=== PATIENT | female | born 1935 ===

== ENCOUNTER 2017-03-15 16:30 | Observation (INO) | payer SELFPAY ==
[2017-03-15 16:30] VITALS: BMI 21.2
--- NOTE | 2017-03-15 17:46 | ED PDOC ---
Arrival/HPI - General Chief Complaint: Back Pain Time Seen by Provider: 03/15/17 17:42 Historian: Patient - History of Present Illness Narrative History of Present Illness (Text): 03/15/17 17:43 Saroj Noyola is an 82 year old female who presents to the emergency department brought in by EMS complaining of dizziness, and sensation of burning posterior neck and Upper back x 5 days. Patient stated symptoms are intermittent. Patient has fallen on the floor multiple times last 2 weeks. Patient denies cp, sob, diplopia, VAUGHAN, dysarthria, or abnormal gait. Time/Duration: < week Context: Home Past Medical History - Provider Review Nursing Documentation Reviewed: Yes - Infectious Disease Hx of Infectious Diseases: None - Cardiac Hx Cardiac Disorders: Yes - Pulmonary Hx Respiratory Disorders: No - Neurological Hx Neurological Disorder: No - HEENT Hx HEENT Disorder: No - Renal Hx Renal Disorder: No - Endocrine/Metabolic Hx Endocrine Disorders: No - Hematological/Oncological Hx Blood Disorders: No - Integumentary Hx Dermatological Disorder: Yes Other/Comment: LESION TO SKIN ON CHEST WALL - Musculoskeletal/Rheumatological Hx Musculoskeletal Disorders: No - Gastrointestinal Hx Gastrointestinal Disorders: No - Genitourinary/Gynecological Hx Genitourinary Disorders: No - Psychiatric Hx Psychophysiologic Disorder: No Hx Substance Use: No - Surgical History Other/Comment: Pt reported had abdominal surgery but does not remember what it was for. - Anesthesia Hx Anesthesia: Yes Hx Anesthesia Reactions: No Hx Malignant Hyperthermia: No Family/Social History - Physician Review Nursing Documentation Reviewed: Yes Family/Social History: Other (noncontributory) Smoking Status: Never Smoked Hx Alcohol Use: No Hx Substance Use: No Allergies/Home Meds Allergies/Adverse Reactions: Allergies No Known Allergies Allergy (Verified 03/15/17 17:13) Home Medications: Home Meds Medication Instructions Recorded Confirmed Simvastatin 40 mg PO DAILY 03/11/17 03/11/17 Review of Systems - Review of Systems Constitutional: Normal. absent: Fatigue, Weight Change, Fevers Eyes: Normal ENT: Normal Respiratory: Normal. absent: SOB, Cough Cardiovascular: Normal. absent: Chest Pain, Palpitations Gastrointestinal: Normal Genitourinary Female: Normal Musculoskeletal: Normal Skin: Normal Neurological: Dizziness. absent: Headache, Speech Changes Endocrine: Normal Hemo/Lymphatic: Normal Psychiatric: Normal Physical Exam Vital Signs Temp Pulse Resp BP Pulse Ox 03/15/17 17:13 97.8 F 77 17 115/64 98 Temperature: Afebrile Blood Pressure: Normal Pulse: Regular Respiratory Rate: Normal Appearance: Positive for: Well-Appearing, Non-Toxic, Comfortable Pain Distress: None Mental Status: Positive for: Alert and Oriented X 3 - Systems Exam Head: Present: Atraumatic, Normocephalic Pupils: Present: PERRL Extroacular Muscles: Present: EOMI Conjunctiva: Present: Normal Mouth: Present: Moist Mucous Membranes Neck: Present: Normal Range of Motion Respiratory/Chest: Present: Clear to Auscultation, Good Air Exchange. No: Respiratory Distress, Accessory Muscle Use Cardiovascular: Present: Regular Rate and Rhythm, Normal S1, S2. No: Murmurs Abdomen: Present: Normal Bowel Sounds. No: Tenderness, Distention, Peritoneal Signs Back: Present: Normal Inspection Upper Extremity: Present: Normal Inspection, Normal ROM, Capillary Refill < 2s. No: Cyanosis, Edema Lower Extremity: Present: Normal Inspection. No: Edema Neurological: Present: GCS=15, CN II-XII Intact, Speech Normal Skin: Present: Warm, Dry, Normal Color. No: Rashes Psychiatric: Present: Alert, Oriented x 3, Normal Insight, Normal Concentration Medical Decision Making ED Course and Treatment: 03/16/17 00:[address] Baker regarding patient c/o dizziness. He reviewed labs, imaging. He agreed with plan for observation. Re-evaluation Time: 23:46 Reassessment Condition: Re-examined, Improving,but remains with symptoms - Lab Interpretations Lab Results: 03/15/17 19:21 03/15/17 19:21 Lab Results 03/15/17 19:21: Sodium 143, Potassium 4.1, Chloride 105, Carbon Dioxide 26, Anion Gap 16, BUN 14, Creatinine 0.7, Est GFR ( Amer) > 60, Est GFR (Non- Af Amer) > 60, Random Glucose 106, Calcium 9.7, Magnesium 2.3 H, Total Bilirubin 0.9, AST 41 H D, ALT 37, Alkaline Phosphatase 85, Lactate Dehydrogenase 614, Total Creatine Kinase 188, Troponin I 0.03 D, Total Protein 7.8, Albumin 4.7, Globulin 3.1, Albumin/Globulin Ratio 1.5 03/15/17 19:21: WBC 7.8, RBC 4.18, Hgb 13.9, Hct 42.3, MCV 101.2, MCH 33.3, MCHC 32.9, RDW 13.1, Plt Count 202, MPV 10.3, Gran % 73.1 H, Lymph % (Auto) 19.7 L, Florence % (Auto) 6.1 H, Eos % (Auto) 0.5 L, Baso % (Auto) 0.6, Gran # 5.67 , Lymph # 1.5, Florence # 0.5, Eos # 0.0, Baso # 0.05 I have reviewed the lab results: Yes Interpretation: No clinic. lab abnormalty - RAD Interpretation Narrative RAD Interpretations (Text): 03/15/17 19:50 PROCEDURE: CT HEAD WITHOUT CONTRAST. HISTORY: Dizziness COMPARISON: 03/11/2017. TECHNIQUE: Axial computed tomography images were obtained through the head/brain without intravenous contrast. Radiation dose: Total exam DLP = 868.73 mGy-cm. This CT exam was performed using one or more of the following dose reduction techniques: Automated exposure control, adjustment of the mA and/or kV according to patient size, and/or use of iterative reconstruction technique. FINDINGS: HEMORRHAGE: No intracranial hemorrhage. BRAIN: There are mild chronic microangiopathic changes. There is no mass, mass effect or abnormal extra-axial fluid collection. There is no territorial infarction. There are coarse atherosclerotic calcifications in the cavernous carotid arteries. VENTRICLES: There is mild age-related global parenchymal volume loss and proportionate enlargement of the ventricles and cortical sulci. CALVARIUM: There is mild hyperostosis frontalis interna. PARANASAL SINUSES: Predominantly clear. MASTOID AIR CELLS: Predominantly clear. OTHER FINDINGS: None. IMPRESSION: No acute intracranial abnormality. Mild chronic microangiopathic changes and mild age-related global parenchymal volume loss. 03/15/17 23:46 Patient Name / ID : SHERYL KYLE / [id number] Exam Date : 03/15/2017 21:20:44 ( Approved ) Study Comment : Sex / Age : F / [id number] Creator : JOAQUIN IYER Dictator : Lap Polisher : Anesthesiology Medical Doctor : JOAQUIN IYER Approver2 : Report Date : 03/15/2017 23:34:00 My Comment : [facility] Division of Radiology [address] [address] Tel. no. Patient Name: SAROJ NOYOLA Pt. Address: [address] [place] [address]. Rec #: [id number] [place] [address]: Mariya Maldonado PA-C Pt Order Location: ED : 1935 Female Age: 82 Order #: [id number] Reason for exam: posterior neck pain and dizziness CT Scan CTA HEAD NECK BUNDLE Exam Date: 03/15/17 This imaging exam was performed at [facility] EXAM: CT Angiography Head With Intravenous Contrast CLINICAL HISTORY: The patient age is 82 years old and is female; Signs and symptoms; Other: Posterior neck pain and dizziness Facility exam id and description: [facility] head neck bundle TECHNIQUE: Axial computed tomographic angiography images of the head with intravenous contrast using CT angiography protocol. All CT scans at this facility use one or more dose reduction techniques, viz.: automated exposure control; ma/kV adjustment per patient size (including targeted exams where dose is matched to indication; i.e. head); or iterative reconstruction technique. MIP reconstructed images were created and reviewed. Coronal and sagittal reformatted images were created and reviewed. CONTRAST: 147 mL of omni 350 administered intravenously. COMPARISON: No relevant prior studies available. FINDINGS: Right internal carotid artery: Atherosclerotic changes are identified of the internal carotid arteries bilaterally, with approximately 50% stenosis on the left side and less than 50% stenosis on the right side. Right anterior cerebral artery: No occlusion or significant stenosis. No aneurysm. Right middle cerebral artery: No occlusion or significant stenosis. No aneurysm. Right posterior cerebral artery: No occlusion or significant stenosis. No aneurysm. Right vertebral artery: No occlusion or significant stenosis. Left internal carotid artery: See above. Left anterior cerebral artery: No occlusion or significant stenosis. No aneurysm. Left middle cerebral artery: No occlusion or significant stenosis. No aneurysm. Left posterior cerebral artery: There is persistence of the origin of the left posterior cerebral artery, without significant stenosis or occlusion. 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 No aneurysm. Left vertebral artery: A dominant left vertebral artery is identified. No occlusion or significant stenosis. Basilar artery: No significant stenosis. No occlusion. No aneurysm. Bones/joints: Hyperostosis frontalis interna. IMPRESSION: 1. There is persistence of the origin of the left posterior cerebral artery. 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 2. Atherosclerotic changes are identified of the internal carotid arteries bilaterally, with approximately 50% stenosis on the left side and less than 50 % stenosis on the right side. 3. A dominant left vertebral artery is identified. EXAM: CT Angiography Neck With Intravenous Contrast EXAM DATE/TIME: 03/15/2017 5:58 PM CLINICAL HISTORY: The patient age is 82 years old and is female; Signs and symptoms; Other: Posterior neck pain and dizziness [facility] exam [facility] and description[facility] TECHNIQUE: Axial computed tomographic angiography images of the neck with intravenous contrast using CT angiography protocol. All CT scans at this facility use one or more dose reduction techniques, viz.: automated exposure control; ma/kV adjustment per patient size (including targeted exams where dose is matched to indication; i.e. head); or iterative reconstruction technique. MIP reconstructed images were created and reviewed. Coronal and sagittal reformatted images were created and reviewed. CONTRAST: 147 mL of omni 350 administered intravenously. COMPARISON: CT - HEAD W/O CONTRAST 2017-03-15 18:01 FINDINGS: VASCULATURE: Right common carotid artery: Atherosclerotic changes are identified of the right carotid bifurcation. There is approximately 30% stenosis of the proximal right internal carotid artery. Mild stenosis is also visualized of the distal right common carotid artery. Right internal carotid artery: See above. Right external carotid artery: There is mild stenosis of the proximal right external carotid artery. No occlusion. Right vertebral artery: No occlusion or significant stenosis. Left common carotid artery: No significant stenosis. No dissection or occlusion. Left internal carotid artery: Mild atherosclerotic changes are identified of the proximal left internal carotid artery, without hemodynamically significant stenosis. No dissection or occlusion. Left external carotid artery: No occlusion. Left vertebral artery: A dominant left vertebral artery is identified. No significant stenosis or occlusion. Other vasculature: Atherosclerotic changes are visualized of the aortic arch. NECK: Bones/joints: Spondylosis is visualized at multiple cervical levels. There is straightening of the lordotic curvature of the cervical spine. Soft tissues: No mass. Thyroid: Within the right thyroid lobe, there is an 8mm heterogeneously hypodense nodule. Lung apices: Within the left upper lobe on series 2 image 1, there is a 6 mm nodule. There is a 2 mm calcified nodule in the right upper lobe of the lung. Other findings: There is mild wall thickening of the esophagus, which may be inflammatory, although additional pathology cannot be excluded. CAROTID STENOSIS REFERENCE USING NASCET CRITERIA: % ICA stenosis = (1 - narrowest ICA diameter/diameter of distal cervical ICA ) x 100. Mild - <50% stenosis. Moderate - 50-69% stenosis. Severe - 70-94% stenosis. Near occlusion - 95-99% stenosis. Occluded - 100% stenosis. IMPRESSION: 1. Atherosclerotic changes are identified of the right carotid bifurcation. There is approximately 30% stenosis of the proximal right internal carotid artery. Mild stenosis is also visualized of the distal right common carotid artery. 2. A dominant left vertebral artery is identified. 3. There is mild stenosis of the proximal right external carotid artery. 4. Within the left upper lobe on series 2 image 1, there is a 6 mm nodule. A nonemergent chest CT is recommended. 5. There is mild wall thickening of the esophagus, which may be inflammatory, although additional pathology cannot be excluded. 6. Within the right thyroid lobe, there is an 8mm heterogeneously hypodense nodule. 7. Incidental/non-acute findings are described above. Dictated By: Joaquin Mane MD, MD Radiology Orders: 03/15/17 17:44 HEAD W/O CONTRAST [CT] Stat 03/15/17 17:45 CHEST ONE VIEW [RAD] Stat 03/15/17 17:58 CTA HEAD & NECK BUNDLE [CT] Stat - EKG Interpretation Interpreted by ED Physician: Yes (NSR @ [address] changes) Type: 12 lead EKG Comparison: No previous EKG avail. Disposition/Present on Arrival - Present on Arrival Any Indicators Present on Arrival: No History of DVT/PE: No History of Uncontrolled Diabetes: No Urinary Catheter: No History of Decub. Ulcer: No History Surgical Site Infection Following: None - Disposition Have Diagnosis and Disposition been Completed?: Yes Diagnosis: Dizziness, Near syncope Disposition: HOSPITALIZED Disposition Time: 00:14 Patient Plan: Admission Patient Problems: Current Active Problems Problem Status Onset Dizziness Acute Multiple falls Acute Condition: STABLE Forms: [employer] ([place])
--- NOTE | 2017-03-15 18:18 | CT ---
PROCEDURE: CT HEAD WITHOUT CONTRAST. HISTORY: Dizziness COMPARISON: 03/11/2017. TECHNIQUE: Axial computed tomography images were obtained through the head/brain without intravenous contrast. Radiation dose: Total exam DLP = 868.73 mGy-cm. This CT exam was performed using one or more of the following dose reduction techniques: Automated exposure control, adjustment of the mA and/or kV according to patient size, and/or use of iterative reconstruction technique. FINDINGS: HEMORRHAGE: No intracranial hemorrhage. BRAIN: There are mild chronic microangiopathic changes. There is no mass, mass effect or abnormal extra-axial fluid collection. There is no territorial infarction. There are coarse atherosclerotic calcifications in the cavernous carotid arteries. VENTRICLES: There is mild age-related global parenchymal volume loss and proportionate enlargement of the ventricles and cortical sulci. CALVARIUM: There is mild hyperostosis frontalis interna. PARANASAL SINUSES: Predominantly clear. MASTOID AIR CELLS: Predominantly clear. OTHER FINDINGS: None. IMPRESSION: No acute intracranial abnormality. Mild chronic microangiopathic changes and mild age-related global parenchymal volume loss.
[2017-03-15 19:46] LABS: BASO # 0.05 K/mm3 (0.0-2.0); BASO % 0.6 % (0.0-3.0); EOS % 0.5 % (1.5-5.0); GRAN # 5.67 (1.4-6.5); GRAN % 73.1 % (50.0-68.0); HEMOGLOBIN 13.9 g/dL (12.0-16.0); LYMPH # 1.5 (1.2-3.4); LYMPH % 19.7 % (22.0-35.0); MEAN CELL VOLUME 101.2 fl (80.0-105.0); MEAN CORPUSCULAR HEMOGLOBIN 33.3 pg (25.0-35.0); MEAN CORPUSCULAR HGB CONC 32.9 g/dl (31.0-37.0); MEAN PLATELET VOLUME 10.3 fl (7.0-11.0); MONO # 0.5 (0.1-0.6); MONO % 6.1 % (1.0-6.0); RBC 4.18 10^6/uL (3.5-6.1); RED CELL DISTRIBUTION WIDTH 13.1 % (11.5-14.5); WHITE BLOOD COUNT 7.8 10^3/ul (4.5-11.0)
[2017-03-15 19:57] LABS: ALB/GLOB RATIO 1.5 (1.1-1.8); ALBUMIN 4.7 g/dL (3.0-4.8); ALT/SGPT 37 U/L (7-56); AST/SGOT 41 U/L (14-36); BLOOD UREA NITROGEN 14 mg/dL (7-21); CALCIUM 9.7 mg/dL (8.4-10.5); GFR AFRICAN-AMERICAN > 60; GFR NON-AFRICAN AMERICAN > 60; MAGNESIUM 2.3 mg/dL (1.7-2.2)
[2017-03-15 20:00] LABS: TROPONIN I 0.03 ng/mL
--- NOTE | 2017-03-15 23:34 | CT ---
EXAM: CT Angiography Head With Intravenous Contrast CLINICAL HISTORY: The patient age is 82 years old and is female; Signs and symptoms; Other: Posterior neck pain and dizziness Facility exam id and description: Ct [facility] head neck bundle TECHNIQUE: Axial computed tomographic angiography images of the head with intravenous contrast using CT angiography protocol. All CT scans at this facility use one or more dose reduction techniques, viz.: automated exposure control; ma/kV adjustment per patient size (including targeted exams where dose is matched to indication; i.e. head); or iterative reconstruction technique. MIP reconstructed images were created and reviewed. Coronal and sagittal reformatted images were created and reviewed. CONTRAST: 147 mL of omni 350 administered intravenously. COMPARISON: No relevant prior studies available. FINDINGS: Right internal carotid artery: Atherosclerotic changes are identified of the internal carotid arteries bilaterally, with approximately 50% stenosis on the left side and less than 50% stenosis on the right side. Right anterior cerebral artery: No occlusion or significant stenosis. No aneurysm. Right middle cerebral artery: No occlusion or significant stenosis. No aneurysm. Right posterior cerebral artery: No occlusion or significant stenosis. No aneurysm. Right vertebral artery: No occlusion or significant stenosis. Left internal carotid artery: See above. Left anterior cerebral artery: No occlusion or significant stenosis. No aneurysm. Left middle cerebral artery: No occlusion or significant stenosis. No aneurysm. Left posterior cerebral artery: There is persistence of the origin of the left posterior cerebral artery, without significant stenosis or occlusion. 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 No aneurysm. Left vertebral artery: A dominant left vertebral artery is identified. No occlusion or significant stenosis. Basilar artery: No significant stenosis. No occlusion. No aneurysm. Bones/joints: Hyperostosis frontalis interna. IMPRESSION: 1. There is persistence of the origin of the left posterior cerebral artery. 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 2. Atherosclerotic changes are identified of the internal carotid arteries bilaterally, with approximately 50% stenosis on the left side and less than 50% stenosis on the right side. 3. A dominant left vertebral artery is identified. EXAM: CT Angiography Neck With Intravenous Contrast EXAM DATE/TIME: 03/15/2017 5:58 PM CLINICAL HISTORY: The patient age is 82 years old and is female; Signs and symptoms; Other: Posterior neck pain and dizziness Facility exam id and description: Ct [facility] head neck bundle TECHNIQUE: Axial computed tomographic angiography images of the neck with intravenous contrast using CT angiography protocol. All CT scans at this facility use one or more dose reduction techniques, viz.: automated exposure control; ma/kV adjustment per patient size (including targeted exams where dose is matched to indication; i.e. head); or iterative reconstruction technique. MIP reconstructed images were created and reviewed. Coronal and sagittal reformatted images were created and reviewed. CONTRAST: 147 mL of omni 350 administered intravenously. COMPARISON: CT - HEAD W/O CONTRAST 2017-03-15 18:01 FINDINGS: VASCULATURE: Right common carotid artery: Atherosclerotic changes are identified of the right carotid bifurcation. There is approximately 30% stenosis of the proximal right internal carotid artery. Mild stenosis is also visualized of the distal right common carotid artery. Right internal carotid artery: See above. Right external carotid artery: There is mild stenosis of the proximal right external carotid artery. No occlusion. Right vertebral artery: No occlusion or significant stenosis. Left common carotid artery: No significant stenosis. No dissection or occlusion. Left internal carotid artery: Mild atherosclerotic changes are identified of the proximal left internal carotid artery, without hemodynamically significant stenosis. No dissection or occlusion. Left external carotid artery: No occlusion. Left vertebral artery: A dominant left vertebral artery is identified. No significant stenosis or occlusion. Other vasculature: Atherosclerotic changes are visualized of the aortic arch. NECK: Bones/joints: Spondylosis is visualized at multiple cervical levels. There is straightening of the lordotic curvature of the cervical spine. Soft tissues: No mass. Thyroid: Within the right thyroid lobe, there is an 8mm heterogeneously hypodense nodule. Lung apices: Within the left upper lobe on series 2 image 1, there is a 6 mm nodule. There is a 2 mm calcified nodule in the right upper lobe of the lung. Other findings: There is mild wall thickening of the esophagus, which may be inflammatory, although additional pathology cannot be excluded. CAROTID STENOSIS REFERENCE USING NASCET CRITERIA: % ICA stenosis = (1 - narrowest ICA diameter/diameter of distal cervical ICA) x 100. Mild - <50% stenosis. Moderate - 50-69% stenosis. Severe - 70-94% stenosis. Near occlusion - 95-99% stenosis. Occluded - 100% stenosis. IMPRESSION: 1. Atherosclerotic changes are identified of the right carotid bifurcation. There is approximately 30% stenosis of the proximal right internal carotid artery. Mild stenosis is also visualized of the distal right common carotid artery. 2. A dominant left vertebral artery is identified. 3. There is mild stenosis of the proximal right external carotid artery. 4. Within the left upper lobe on series 2 image 1, there is a 6 mm nodule. A nonemergent chest CT is recommended. 5. There is mild wall thickening of the esophagus, which may be inflammatory, although additional pathology cannot be excluded. 6. Within the right thyroid lobe, there is an 8mm heterogeneously hypodense nodule. 7. Incidental/non-acute findings are described above.
[2017-03-16] MEDS: Sodium Chloride 0.9% 1,000 ML IV SCH ×2 (02:21→14:04)
--- NOTE | 2017-03-16 02:25 | CP.PCM.HP ---
<Jose Alves - Last Filed: 03/16/17 06:30> History of Present Illness - History of Present Illness History of Present Illness: Analy Noyola is an 82 year old female polish speaking female with a past medical history significant for HLD who presents with a chief complaint of intermittent dizziness that started approximately four days ago with multiple falls and associated intermittent neck pain, upper back pain and substernal sharp chest pain. Patient reports that four days ago, she began to experience episodes of dizziness where the "room starts spinning". Patient reports that this is unrelated to position, exertion or time of day endorsing that she gets dizzy even when she is resting. She also reports that she has fallen to the floor multiple times over the course of the past two weeks. The sharp substernal chest pain is non-radiating and is self limited, lasting only a few seconds. Her neck and posterior back pain are described as a burning sensation that is also non-radiating. She endorses syncope but denies fever, chills, headache, changes in her vision, rhinorrhea, ear pain/discharge, sore throat, dysphagia, palpitations, leg swelling, orthopnea, SOB, cough, wheezing, hemoptysis, abdominal pain, N/V, diarrhea, constipation, melena, hematochezia, burning/pain with urination, urinary frequency, hematuria, skin changes, joint pain, or any numbness/tingling/weakness of any extremity. PMH: HLD PSH: Denies Family History: Unknown as patients parents when patient was very young Social History: Denies any tobacco, alcohol or illicit drug use; Lives at home with her Allergies: NKDA Home Medications: As per MAR Present on Admission - Present on Admission Any Indicators Present on Admission: No Review of Systems - Review of Systems Review of Systems: As stated in HPI, otherwise negative Past Patient History - Infectious Disease Hx of Infectious Diseases: None - Tetanus Immunizations Tetanus Immunization: Unknown - Past Social History Smoking Status: Never Smoked - CARDIAC Hx Cardiac Disorders: Yes - PULMONARY Hx Respiratory Disorders: No - NEUROLOGICAL Hx Neurological Disorder: No - HEENT Hx HEENT Problems: No - RENAL Hx Chronic Kidney Disease: No - ENDOCRINE/METABOLIC Hx Endocrine Disorders: No - HEMATOLOGICAL/ONCOLOGICAL Hx Blood Disorders: No - INTEGUMENTARY Hx Dermatological Problems: Yes Other/Comment: LESION TO SKIN ON CHEST WALL - MUSCULOSKELETAL/RHEUMATOLOGICAL Hx Musculoskeletal Disorders: No - GASTROINTESTINAL Hx Gastrointestinal Disorders: No - GENITOURINARY/GYNECOLOGICAL Hx Genitourinary Disorders: No - PSYCHIATRIC Hx Psychophysiologic Disorder: No Hx Substance Use: No - SURGICAL HISTORY Other/Comment: Pt reported had abdominal surgery but does not remember what it was for. - ANESTHESIA Hx Anesthesia: Yes Hx Anesthesia Reactions: No Hx Malignant Hyperthermia: No Meds Allergies/Adverse Reactions: Allergies Allergy/AdvReac Type Severity Reaction Status Date / Time No Known Allergies Allergy Verified 03/15/17 17:13 Physical Exam - Constitutional Appears: Well, No Acute Distress - Head Exam Head Exam: ATRAUMATIC, NORMAL INSPECTION, NORMOCEPHALIC - Eye Exam Eye Exam: EOMI, Normal appearance, PERRL. absent: Conjunctival injection, Nystagmus, Periorbital swelling, Periorbital tenderness, Scleral icterus Pupil Exam: NORMAL ACCOMODATION, PERRL. absent: Fixed, Irregular, Miosis, Mydriatic, Unequal - ENT Exam ENT Exam: Mucous Membranes Moist, Normal Exam, Normal External Ear Exam, Normal Oropharynx - Neck Exam Neck exam: Positive for: Full Rom, Normal Inspection. Negative for: Lymphadenopathy, Meningismus, Tenderness, Thyromegaly - Respiratory Exam Respiratory Exam: Clear to Auscultation Bilateral, NORMAL BREATHING PATTERN. absent: Accessory Muscle Use, Chest Wall Tenderness, Decreased Breath Sounds, Prolonged Expiratory Phase, Rales, Rhonchi, Wheezes, Respiratory Distress, Stridor - Cardiovascular Exam Cardiovascular Exam: REGULAR RHYTHM, RRR, +S1, +S2. absent: Bradycardia, Tachycardia, Clicks, Diastolic murmur, Gallop, Irregular Rhythm, JVD, Rubs, +S4 , Systolic Murmur - GI/Abdominal Exam GI & Abdominal Exam: Normal Bowel Sounds, Soft. absent: Bruit, Diminished Bowel Sounds, Distended, Firm, Guarding, Hernia, Hyperactive Bowel Sounds, Hypoactive Bowel Sounds, Mass, Organomegaly, Pulsatile Mass, Rebound, Rigid, Tenderness - Extremities Exam Extremities exam: Positive for: full ROM, normal capillary refill, normal inspection, pedal pulses present. Negative for: calf tenderness, joint swelling , pedal edema, tenderness - Back Exam Back exam: FULL ROM, NORMAL INSPECTION. absent: CVA tenderness (L), CVA tenderness (R), muscle spasm, paraspinal tenderness, rash noted, tenderness, vertebral tenderness - Neurological Exam Neurological exam: Alert, CN II-XII Intact, Oriented x3 - Psychiatric Exam Psychiatric exam: Normal Affect, Normal Mood - Skin Skin Exam: Dry, Intact, Normal Color, Warm Results - Vital Signs Recent Vital Signs: Last Vital Signs Temp 97.8 F 03/15/17 17:13 Pulse 77 03/15/17 17:13 Resp 17 03/15/17 17:13 BP 115/64 03/15/17 17:13 Pulse Ox 98 03/15/17 17:13 - Labs Result Diagrams: 03/15/17 19:21 03/15/17 19:21 - EKG Data EKG shows normal: Sinus rhythm Rate: Normal Assessment & Plan - Assessment and Plan (Free Text) Assessment: 82 year old female polish speaking female with a past medical history significant for HLD who presents with a chief complaint of intermittent dizziness that started approximately four days ago with multiple falls and associated intermittent neck pain, upper back pain and substernal sharp chest pain. Patient was found to have no acute intracranial abnormalities on a CT head. On a CTA of her head and neck, she was found to have 30% stenosis of the proximal right ICA, mild stenosis distal right CCA and proximal right, a 6 mm nodule in her COREEN, mild wall thickening of the esophagus and an 8mm heterogeneously hypodense nodule in the right thyroid lobe. A chest x-ray was done and is pending radiologist interpretation. Of note, patient was seen in the ED for similar complaints four days ago and signed out AMA. Plan: 1. Dizziness -CT Head showed no acute abnormal findings -CTA Head/Neck showed 30% stenosis of the proximal right ICA, mild stenosis distal right CCA and proximal right, a 6 mm nodule in her COREEN, mild wall thickening of the esophagus and an 8mm heterogeneously hypodense nodule in the right thyroid lobe -Chest X-ray pending radiologist interpretation -CBC and CMP showed no significant findings; Initial troponin negative; UA, A1C and thyroid profile pending -EKG showed normal sinus rhythm at 68bpm -Dara-Hallpike negative -Echo pending -Thyroid profile pending -Orthostatic Vital signs pending -AM Troponin and EKG -NS at 75mls/hr -Fall risk precautions 2. History of HLD -Lipitor 20mg PO DIN -Home Simvastatin is NF -Heart Healthy Diet GI Prophylaxis: Protonix DVT Prophylaxis: SCD's Patient seen and case discussed with attending, Dr. Baker. - Date & Time Date: 03/16/17 Time: 02:27 <Olivia BOOTH,Wesley - Last Filed: 03/18/17 10:36> Results - Vital Signs Recent Vital Signs: Last Vital Signs Temp 98.2 F 03/16/17 17:07 Pulse 71 03/17/17 09:57 Resp 18 03/16/17 17:07 BP 125/66 03/16/17 17:07 Pulse Ox 98 03/16/17 16:00 - Labs Result Diagrams: 03/17/17 05:30 03/17/17 05:30 Attending/Attestation - Attestation I have personally seen and examined this patient.: Yes I have fully participated in the care of the patient.: Yes I have reviewed all pertinent clinical information: Yes Notes (Text): -I agree with the above H&P completed by the resident physician.
[2017-03-16] MEDS: Pantoprazole 40 mg EC Tab PO SCH (07:00)
--- NOTE | 2017-03-16 08:14 | RAD ---
PROCEDURE: CHEST RADIOGRAPH, 1 VIEW HISTORY: dizziness COMPARISON: 03/11/2017 FINDINGS: LUNGS: Clear. PLEURA: No pneumothorax or pleural fluid seen. CARDIOVASCULAR: Normal. OSSEOUS STRUCTURES: No significant abnormalities. VISUALIZED UPPER ABDOMEN: Normal. OTHER FINDINGS: None. IMPRESSION: No active disease.
[2017-03-16 10:11] LABS: BASO # 0.03 K/mm3 (0.0-2.0); BASO % 0.5 % (0.0-3.0); EOS % 0.6 % (1.5-5.0); GRAN # 4.56 (1.4-6.5); GRAN % 69.9 % (50.0-68.0); HEMOGLOBIN 13.5 g/dL (12.0-16.0); LYMPH # 1.5 (1.2-3.4); LYMPH % 23.6 % (22.0-35.0); MEAN CELL VOLUME 101.5 fl (80.0-105.0); MEAN CORPUSCULAR HEMOGLOBIN 33.5 pg (25.0-35.0); MEAN PLATELET VOLUME 10.6 fl (7.0-11.0); MONO # 0.4 (0.1-0.6); MONO % 5.4 % (1.0-6.0); RBC 4.03 10^6/uL (3.5-6.1); WHITE BLOOD COUNT 6.5 10^3/ul (4.5-11.0)
[2017-03-16 10:44] LABS: TROPONIN I 0.03 ng/mL
[2017-03-16 10:45] LABS: ALB/GLOB RATIO 1.5 (1.1-1.8); ALBUMIN 4.4 g/dL (3.0-4.8); ALT/SGPT 40 U/L (7-56); AST/SGOT 36 U/L (14-36); BLOOD UREA NITROGEN 10 mg/dL (7-21); CALCIUM 9.6 mg/dL (8.4-10.5); GFR AFRICAN-AMERICAN > 60; GFR NON-AFRICAN AMERICAN > 60
[2017-03-16 10:51] LABS: FREE T4 1.09 ng/dL (0.78-2.19)
--- NOTE | 2017-03-16 11:20 | CP.PCM.CON ---
History of Present Illness - History of Present Illness History of Present Illness: 82 yr old woman, right handed, afghan speaking, pmh of HLD, who is here after having intermittent dizziness, starting 4 days prior with multiple falls. She also complains of back and neck pain, and room spinning. It started suddenly , and is not associated wtih hearing loss or headache. She states that this is unrelated to position, or exertion. Denies hearing loss or headache. She also complains of neck and posterior back pain with burning sensation that is non radiating. Denies fever, chills, headache, changes in her vision, rhinorrhea, ear pain/discharge, sore throat, dysphagia, palpitations, leg swelling, orthopnea, SOB, cough, wheezing, hemoptysis, abdominal pain, N/V, diarrhea, constipation, melena, hematochezia, burning/pain with urination, urinary frequency, hematuria, skin changes, joint pain, or any numbness/tingling /weakness of any extremity. PMH: HLD PSH: Denies Family History: Unknown as patients parents when patient was very young Social History: Denies any tobacco, alcohol or illicit drug use; Lives at home with her Allergies: NKDA Home Medications: As per MAR Review of Systems - Review of Systems Systems not reviewed;Unavailable: Language Barrier - Constitutional Constitutional: Frequent Falls Past Patient History - Infectious Disease Hx of Infectious Diseases: None - Tetanus Immunizations Tetanus Immunization: Unknown - Past Social History Smoking Status: Never Smoked - CARDIAC Hx Cardiac Disorders: Yes - PULMONARY Hx Respiratory Disorders: No - NEUROLOGICAL Hx Neurological Disorder: No - HEENT Hx HEENT Problems: No - RENAL Hx Chronic Kidney Disease: No - ENDOCRINE/METABOLIC Hx Endocrine Disorders: No - HEMATOLOGICAL/ONCOLOGICAL Hx Blood Disorders: No - INTEGUMENTARY Hx Dermatological Problems: Yes Other/Comment: LESION TO SKIN ON CHEST WALL - MUSCULOSKELETAL/RHEUMATOLOGICAL Hx Musculoskeletal Disorders: No - GASTROINTESTINAL Hx Gastrointestinal Disorders: No - GENITOURINARY/GYNECOLOGICAL Hx Genitourinary Disorders: No - PSYCHIATRIC Hx Psychophysiologic Disorder: No Hx Substance Use: No - SURGICAL HISTORY Other/Comment: Pt reported had abdominal surgery but does not remember what it was for. - ANESTHESIA Hx Anesthesia: Yes Hx Anesthesia Reactions: No Hx Malignant Hyperthermia: No Meds Allergies/Adverse Reactions: Allergies Allergy/AdvReac Type Severity Reaction Status Date / Time No Known Allergies Allergy Verified 03/15/17 17:13 - Medications Medications: Current Medications Atorvastatin Calcium (Lipitor) 20 mg PO DIN [facility] Sodium Chloride (Sodium Chloride 0.9%) 1,000 mls @ 75 mls/hr IV .[id number] [facility] Last Admin: 03/16/17 02:21 Dose: 75 mls/hr Pantoprazole Sodium (Protonix Ec Tab) 40 mg PO 0600 [facility] Last Admin: 03/16/17 07:00 Dose: 40 mg Physical Exam - Constitutional Appears: No Acute Distress - Head Exam Head Exam: ATRAUMATIC, NORMAL INSPECTION - Eye Exam Additional comments: ptosis of right eye, but EOMI, and visual hollis are full - Neurological Exam Additional comments: No coghweel rigidity, no bradykinesia. Gait is normal. There is no tremor. has a good turn radius, with no postural instability. Results - Vital Signs Recent Vital Signs: Last Vital Signs Temp 97.8 F 03/15/17 17:13 Pulse 57 L 03/16/17 07:26 Resp 17 03/16/17 07:26 BP 126/66 03/16/17 07:26 Pulse Ox 97 03/16/17 07:26 - Labs Result Diagrams: 03/16/17 10:00 03/16/17 10:00 Labs: Laboratory Results - last 24 hr 03/16/17 03/16/17 03/16/17 10:00 10:00 10:00 WBC 6.5 RBC 4.03 Hgb 13.5 Hct 40.9 MCV 101.5 MCH 33.5 MCHC 33.0 RDW 13.0 Plt Count 185 MPV 10.6 Gran % 69.9 H Lymph % (Auto) 23.6 [place] % (Auto) 5.4 Eos % (Auto) 0.6 L Baso % (Auto) 0.5 Gran # 4.56 Lymph # 1.5 [place] # 0.4 Eos # 0.0 Baso # 0.03 Sodium 140 Potassium 3.7 Chloride 102 Carbon Dioxide 28 Anion Gap 14 BUN 10 Creatinine 0.7 Est GFR ( Amer) > 60 Est GFR (Non-Af Amer) > 60 Random Glucose 89 Calcium 9.6 Total Bilirubin 1.4 H AST 36 ALT 40 Alkaline Phosphatase 96 Lactate Dehydrogenase 480 Total Creatine Kinase 135 Troponin I 0.03 Total Protein 7.3 Albumin 4.4 Globulin 2.9 Albumin/Globulin Ratio 1.5 Free T4 1.09 TSH 3rd Generation 2.32 Assessment & Plan - Assessment and Plan (Free Text) Assessment: 82 yr old woman with dizziness that may be secondary to labyrinthitis, mild viral infection, or secondary to cerebellar process. I will order MRI Brain without contrast, and standard neuroimaging, including Dopplers is normal. There is no sign at this moment of herpetic neuralgia in this patient, but she will need outpatient followup. Plan: 1. MRi brain without annie. If normal, may discharge 2. outpatient vestibular therapy 3. IV fluids with normal saline until discharge Thank you for this interesting consult. we will follow. Dr. Rony Mckeon MD, DPN
[2017-03-16 11:56] VITALS: RESP 18
--- NOTE | 2017-03-16 16:16 | MRI ---
PROCEDURE: MRI BRAIN WITHOUT CONTRAST HISTORY: dizziness with falls COMPARISON: None. TECHNIQUE: Multiplanar, multisequence MR images of the brain were obtained without intravenous contrast enhancement. FINDINGS: HEMORRHAGE: None DWI: No evidence of an acute or early subacute infarction. BRAIN PARENCHYMA: No mass effect or edema. Severe chronic microvascular changes are seen. There are no acute intracranial findings VENTRICLES: Unremarkable. No hydrocephalus. CRANIUM: Unremarkable. ORBITS: Grossly unremarkable. PARANASAL SINUSES/MASTOIDS: Clear VASCULAR SYSTEM: Skull base flow voids intact. OTHER FINDINGS: None. IMPRESSION: No acute intracranial findings
[2017-03-16 17:08] VITALS: BP 125/66; TEMP 98.2
--- NOTE | 2017-03-16 18:00 | CARD ---
APPROVED REPORT EKG Measurement Heart [id number] <Conclusion> Sinus rhythm with premature atrial complexes Otherwise normal ECG
--- NOTE | 2017-03-16 18:03 | CARD ---
APPROVED REPORT EKG Measurement Heart [id number] <Conclusion> Normal sinus rhythm Incomplete right bundle branch block Borderline ECG
[2017-03-16 19:04] VITALS: O2SAT 98
[2017-03-17] MEDS: Sodium Chloride 0.9% 1,000 ML IV SCH (04:00)
[2017-03-17 06:27] LABS: BASO # 0.02 K/mm3 (0.0-2.0); BASO % 0.4 % (0.0-3.0); EOS # 0.1 (0.0-0.7); EOS % 1.4 % (1.5-5.0); GRAN # 3.42 (1.4-6.5); GRAN % 68.1 % (50.0-68.0); LYMPH # 1.1 (1.2-3.4); LYMPH % 22.1 % (22.0-35.0); MEAN CELL VOLUME 101.7 fl (80.0-105.0); MEAN CORPUSCULAR HEMOGLOBIN 32.7 pg (25.0-35.0); MEAN CORPUSCULAR HGB CONC 32.1 g/dl (31.0-37.0); MEAN PLATELET VOLUME 10.8 fl (7.0-11.0); MONO # 0.4 (0.1-0.6); RBC 3.49 10^6/uL (3.5-6.1); RED CELL DISTRIBUTION WIDTH 13.3 % (11.5-14.5)
[2017-03-17] MEDS: Pantoprazole 40 mg EC Tab PO SCH (06:35)
[2017-03-17 06:39] LABS: HEMOGLOBIN 11.4 g/dL (12.0-16.0)
--- NOTE | 2017-03-17 07:08 | CP.PCM.PN ---
Subjective - Date & Time of Evaluation Date of Evaluation: 03/17/17 Time of Evaluation: 07:04 - Subjective Subjective: Ms. Noyola was seen and examined at the bedside. She is alert, oriented in all spheres. 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 She denies any dizziness, lightheadedness, blurred vision, numbness, nausea, or vomiting. She is able to follow simple commands. She has episodes of anxiety which the staff noticed that her HR gets elevated and she complains of dizziness. She is anxious to go home today since her is hospitalized in the facility. Her brain MRI showed normal. There was no untoward events overnight. Objective - Vital Signs/Intake and Output Vital Signs (last 24 hours): Temp Pulse Resp BP Pulse Ox 98.2 F 74 18 125/66 98 03/16/17 17:07 03/16/17 17:07 03/16/17 17:07 03/16/17 17:07 03/16/17 16:00 Intake and Output: 03/17/17 03/17/17 06:59 18:59 Intake Total 380 Balance 380 - Medications Medications: Current Medications Aspirin (Ecotrin) 81 mg PO DAILY [facility] Atorvastatin Calcium (Lipitor) 20 mg PO DIN [facility] Last Admin: 03/16/17 17:46 Dose: 20 mg Sodium Chloride (Sodium Chloride 0.9%) 1,000 mls @ 75 mls/hr IV .[id number] [facility] Last Admin: 03/17/17 04:00 Dose: 75 mls/hr Pantoprazole Sodium (Protonix Ec Tab) 40 mg PO 0600 [facility] Last Admin: 03/17/17 06:35 Dose: 40 mg - Labs Labs: 03/17/17 05:30 03/16/17 10:00 - Constitutional Appears: No Acute Distress - Head Exam Head Exam: NORMAL INSPECTION - Neurological Exam Neurological Exam: Alert, Awake, CN II-XII Intact, Normal Gait, Oriented x3 Neuro motor strength exam: Left Upper Extremity: 5, Right Upper Extremity: 5, Left Lower Extremity: 5, Right Lower Extremity: 5 Additional comments: Neurological improved from previous examination. Assessment and Plan (1) Dizziness Assessment & Plan: Case discussed with Dr. Hamilton, continue all current medical regimen. May be discharge to home since MRI is normal. Status: Acute
[2017-03-17 07:09] LABS: ALB/GLOB RATIO 1.4 (1.1-1.8); ALBUMIN 3.5 g/dL (3.0-4.8); ALT/SGPT 27 U/L (7-56); AST/SGOT 31 U/L (14-36); BLOOD UREA NITROGEN 13 mg/dL (7-21); CALCIUM 8.7 mg/dL (8.4-10.5); GFR AFRICAN-AMERICAN > 60; GFR NON-AFRICAN AMERICAN > 60
[2017-03-17 10:07] VITALS: PULSE 71
--- NOTE | 2017-03-17 13:12 | CP.PCM.DIS ---
<Dewey Guido - Last Filed: 03/17/17 14:25> Provider - Provider Date of Admission: 03/16/17 00:14 Attending physician: Nathalie Sweeney MD Time Spent in preparation of Discharge (in minutes): 40 Diagnosis - Discharge Diagnosis (1) Dizziness Status: Acute (2) Pre-syncope Status: Acute (3) Paroxysmal A-fib Status: Chronic (4) HLD (hyperlipidemia) Status: Chronic Hospital Course - Lab Results Lab Results: Most Recent Lab Values WBC 5.0 10^3/ul (4.5-11.0) D 03/17/17 05:30 RBC 3.49 10^6/uL (3.5-6.1) L 03/17/17 05:30 Hgb 11.4 g/dL (12.0-16.0) L D 03/17/17 05:30 Hct 35.5 % (36.0-48.0) L 03/17/17 05:30 MCV 101.7 fl (80.0-105.0) 03/17/17 05:30 MCH 32.7 pg (25.0-35.0) 03/17/17 05:30 MCHC 32.1 g/dl (31.0-37.0) 03/17/17 05:30 RDW 13.3 % (11.5-14.5) 03/17/17 05:30 Plt Count 170 10^3/uL (120.0-450.0) 03/17/17 05:30 MPV 10.8 fl (7.0-11.0) 03/17/17 05:30 Gran % 68.1 % (50.0-68.0) H 03/17/17 05:30 Lymph % (Auto) 22.1 % (22.0-35.0) 03/17/17 05:30 [place] % (Auto) 8.0 % (1.0-6.0) H 03/17/17 05:30 Eos % (Auto) 1.4 % (1.5-5.0) L 03/17/17 05:30 Baso % (Auto) 0.4 % (0.0-3.0) 03/17/17 05:30 Gran # 3.42 (1.4-6.5) 03/17/17 05:30 Lymph # 1.1 (1.2-3.4) L 03/17/17 05:30 [place] # 0.4 (0.1-0.6) 03/17/17 05:30 Eos # 0.1 (0.0-0.7) 03/17/17 05:30 Baso # 0.02 K/mm3 (0.0-2.0) 03/17/17 05:30 Sodium 140 mmol/L (132-148) 03/17/17 05:30 Potassium 3.7 mmol/L (3.6-5.0) 03/17/17 05:30 Chloride 105 mmol/L (98-107) 03/17/17 05:30 Carbon Dioxide 28 mmol/L (21-33) 03/17/17 05:30 Anion Gap 11 (10-20) 03/17/17 05:30 BUN 13 mg/dL (7-21) 03/17/17 05:30 Creatinine 0.7 mg/dl (0.7-1.2) 03/17/17 05:30 Est GFR ( Amer) > 60 03/17/17 05:30 Est GFR (Non-Af Amer) > 60 03/17/17 05:30 Random Glucose 85 mg/dL (70-110) 03/17/17 05:30 Hemoglobin A1c 5.6 % (4.2-6.5) 03/16/17 10:00 Calcium 8.7 mg/dL (8.4-10.5) 03/17/17 05:30 Magnesium 2.3 mg/dL (1.7-2.2) H 03/15/17 19:21 Total Bilirubin 0.6 mg/dL (0.2-1.3) 03/17/17 05:30 AST 31 U/L (14-36) 03/17/17 05:30 ALT 27 U/L (7-56) 03/17/17 05:30 Alkaline Phosphatase 61 U/L (38-126) 03/17/17 05:30 Lactate Dehydrogenase 480 U/L (333-699) 03/16/17 10:00 Total Creatine Kinase 135 U/L (35-230) 03/16/17 10:00 Troponin I 0.03 ng/mL 03/16/17 10:00 Total Protein 6.0 g/dL (5.8-8.3) 03/17/17 05:30 Albumin 3.5 g/dL (3.0-4.8) 03/17/17 05:30 Globulin 2.5 gm/dL 03/17/17 05:30 Albumin/Globulin Ratio 1.4 (1.1-1.8) 03/17/17 05:30 Free T4 1.09 ng/dL (0.78-2.19) 03/16/17 10:00 TSH 3rd Generation 2.32 mIU/mL (0.46-4.68) 03/16/17 10:00 - Hospital Course Hospital Course: Ms. Noyola is an 82 year old female Yemeni speaking female with a past medical history significant for HLD who presents with a chief complaint of intermittent dizziness that started approximately four days prior to admission and multiple falls per daughter. When evaluated by medical team, the patient denied dizziness and states that she is fine and would like to go home. The patient's is also admitted into the hospital, and she is worried about him and wanted to go visit him. The patient's son (Lukas, ) reported that the patient is very anxious by nature and that when she gets anxious, her heart starts racing, and it was explained to the son by the medical team that Afib is an irregular rhythm that should be worked up. Lukas states that her PMD Dr. Cruz Tate has worked her up before and has assured Lukas that there is nothing wrong with the mother. Lukas unable to provide prior workup. Neuro and cardio were consulted. Cardio recommended Lopressor 25mg BID and Aspirin daily and outpatient follow up for full exam. Neuro recommended MRI be done and further outpatient vestibular therapy. TSH and A1C were normal. CT Head: negative; CTA H/N: 30% stenosis of the R ICA, 6 mm COREEN nodule, 8mm heterogeneously hypodense nodule in the right thyroid lobe; and MRI brain: no acute changes. Patient has no complaints and is medically cleared for discharge. Provided scripts for her medications, information was all relayed to Lukas (son), and patient is cleared for discharge. Discharge Exam - Head Exam Head Exam: ATRAUMATIC, NORMAL INSPECTION - Eye Exam Eye Exam: EOMI, Normal appearance, PERRL - ENT Exam ENT Exam: Mucous Membranes Moist - Neck Exam Neck exam: Normal Inspection - Respiratory Exam Respiratory Exam: Clear to PA & Lateral, NORMAL BREATHING PATTERN, UNREMARKABLE. absent: Rales, Wheezes - Cardiovascular Exam Cardiovascular Exam: RRR, +S1, +S2. absent: Tachycardia, JVD - GI/Abdominal Exam GI & Abdominal Exam: Normal Bowel Sounds, Soft. absent: Distended, Tenderness - Extremities Exam Extremities exam: normal inspection - Neurological Exam Neurological exam: Alert, CN II-XII Intact, Oriented x3, Reflexes Normal - Psychiatric Exam Psychiatric exam: Normal Affect, Normal Mood - Skin Skin Exam: Normal Color, Warm Discharge Plan - Discharge Medications Prescriptions: Aspirin [Ecotrin] 81 mg PO DAILY #30 tabec Metoprolol Tartrate [Lopressor] 25 mg PO BID #60 tab - Follow Up Plan Condition: STABLE Disposition: HOME/ ROUTINE Instructions: Atrial Fibrillation (DC), Labyrinthitis (GEN), Dizziness (GEN) Additional Instructions: - please follow up with PMD Dr. Tate within 2 weeks - please follow up with Dr. Guajardo for workup of the rapid heart rate - please follow up with Dr. Hamilton for workup of dizziness - please continue taking your home medications and take Aspirin once a daily and Lopressor TWICE A DAY - if you experience any heart racing episodes, dizziness or falls, please return to ER for evaluation Referrals: [facility] at [facility] [place] [Outside] Jayjay Tate MD [Medical Doctor] - Rony Hamilton MD [Staff Provider] - Carmen Guajardo MD [Staff Provider] - <Nathalie Sweeney - Last Filed: 03/17/17 16:40> Provider - Provider Date of Admission: 03/16/17 00:14 Attending physician: Nathalie Sweeney MD Hospital Course - Lab Results Lab Results: Most Recent Lab Values WBC 5.0 10^3/ul (4.5-11.0) D 03/17/17 05:30 RBC 3.49 10^6/uL (3.5-6.1) L 03/17/17 05:30 Hgb 11.4 g/dL (12.0-16.0) L D 03/17/17 05:30 Hct 35.5 % (36.0-48.0) L 03/17/17 05:30 MCV 101.7 fl (80.0-105.0) 03/17/17 05:30 MCH 32.7 pg (25.0-35.0) 03/17/17 05:30 MCHC 32.1 g/dl (31.0-37.0) 03/17/17 05:30 RDW 13.3 % (11.5-14.5) 03/17/17 05:30 Plt Count 170 10^3/uL (120.0-450.0) 03/17/17 05:30 MPV 10.8 fl (7.0-11.0) 03/17/17 05:30 Gran % 68.1 % (50.0-68.0) H 03/17/17 05:30 Lymph % (Auto) 22.1 % (22.0-35.0) 03/17/17 05:30 [place] % (Auto) 8.0 % (1.0-6.0) H 03/17/17 05:30 Eos % (Auto) 1.4 % (1.5-5.0) L 03/17/17 05:30 Baso % (Auto) 0.4 % (0.0-3.0) 03/17/17 05:30 Gran # 3.42 (1.4-6.5) 03/17/17 05:30 Lymph # 1.1 (1.2-3.4) L 03/17/17 05:30 [place] # 0.4 (0.1-0.6) 03/17/17 05:30 Eos # 0.1 (0.0-0.7) 03/17/17 05:30 Baso # 0.02 K/mm3 (0.0-2.0) 03/17/17 05:30 Sodium 140 mmol/L (132-148) 03/17/17 05:30 Potassium 3.7 mmol/L (3.6-5.0) 03/17/17 05:30 Chloride 105 mmol/L (98-107) 03/17/17 05:30 Carbon Dioxide 28 mmol/L (21-33) 03/17/17 05:30 Anion Gap 11 (10-20) 03/17/17 05:30 BUN 13 mg/dL (7-21) 03/17/17 05:30 Creatinine 0.7 mg/dl (0.7-1.2) 03/17/17 05:30 Est GFR ( Amer) > 60 03/17/17 05:30 Est GFR (Non-Af Amer) > 60 03/17/17 05:30 Random Glucose 85 mg/dL (70-110) 03/17/17 05:30 Hemoglobin A1c 5.6 % (4.2-6.5) 03/16/17 10:00 Calcium 8.7 mg/dL (8.4-10.5) 03/17/17 05:30 Magnesium 2.3 mg/dL (1.7-2.2) H 03/15/17 19:21 Total Bilirubin 0.6 mg/dL (0.2-1.3) 03/17/17 05:30 AST 31 U/L (14-36) 03/17/17 05:30 ALT 27 U/L (7-56) 03/17/17 05:30 Alkaline Phosphatase 61 U/L (38-126) 03/17/17 05:30 Lactate Dehydrogenase 480 U/L (333-699) 03/16/17 10:00 Total Creatine Kinase 135 U/L (35-230) 03/16/17 10:00 Troponin I 0.03 ng/mL 03/16/17 10:00 Total Protein 6.0 g/dL (5.8-8.3) 03/17/17 05:30 Albumin 3.5 g/dL (3.0-4.8) 03/17/17 05:30 Globulin 2.5 gm/dL 03/17/17 05:30 Albumin/Globulin Ratio 1.4 (1.1-1.8) 03/17/17 05:30 Free T4 1.09 ng/dL (0.78-2.19) 03/16/17 10:00 TSH 3rd Generation 2.32 mIU/mL (0.46-4.68) 03/16/17 10:00 Attending/Attestation - Attestation I have personally seen and examined this patient.: Yes I have fully participated in the care of the patient.: Yes I have reviewed all pertinent clinical information, including history, physical exam and plan: Yes Notes (Text): 03/17/17 16:37 Attending note; Patient is a 82-year-old female with a past medical history of paroxysmal A. fib is admitted with presyncope. Cardiac enzymes negative. Neurology and cardiology evaluation appreciated. PT evaluation appreciated. Patient will be discharged home with close follow-up with PMD Dr. Tate. 03/17/17 16:40
--- NOTE | 2017-03-17 17:15 | CARD ---
APPROVED REPORT EXAM: Two-dimensional and M-mode echocardiogram with Doppler and color Doppler. INDICATION Dizziness and Vertigo 2D DIMENSIONS Left Atrium (2D)3.9 (1.6-4.0cm)IVSd0.9 (0.7-1.1cm) LVDd4.5 (3.9-5.9cm)PWd0.9 (0.7-1.1cm) LVDs3.2 (2.5-4.0cm)FS (%) 29.0 % LVEF (%)55.9 (>50%) M-Mode DIMENSIONS Aortic Root3.40 (2.2-3.7cm)Aortic Cusp Exc.1.60 (1.5-2.0cm) Aortic Valve AoV Peak Federhjf730.0cm/Dusty Peak GR.14mmHgAI P 1/2 [id number] Mitral Valve MV E Nldqhvki546.0cm/sMV A Jveawnlf99.7cm/sE/A ratio1.1 TDI Lateral E' Peak V9.16cm/sMedial E' Peak V6.53cm/sE/Lateral E'11.6 E/Medial E'16.2 Pulmonary Valve PV Peak Omspoqub19.4cm/sPV Peak Grad.1mmHg Tricuspid Valve TR Peak [id number]/sRAP [id number] Peak Gr.43mmHg [id number] LEFT VENTRICLE The left ventricle is normal size. There is normal left ventricular wall thickness. The left ventricular function is normal. The left ventricular ejection fraction is within the normal range. There is normal LV segmental wall motion. Transmitral Doppler flow pattern is Grade I-abnormal relaxation pattern. RIGHT VENTRICLE The right ventricle is normal size. There is normal right ventricular wall thickness. The right ventricular systolic function is normal. ATRIA The left atrium size is normal. The right atrium size is normal. AORTIC VALVE The aortic valve is mildly sclerotic. There is mild to moderate aortic regurgitation. MITRAL VALVE The mitral valve is mildly thickened. Mitral regurgitation is mild. TRICUSPID VALVE There is moderate tricuspid regurgitation. There is moderate pulmonary hypertension. GREAT VESSELS The aortic root is normal in size. The IVC is normal in size and collapses >50% with inspiration. PERICARDIAL EFFUSION There is a trace loculated anterior pericardial effusion. <Conclusion> The left ventricle is normal size. There is normal left ventricular wall thickness. The left ventricular function is normal. The left ventricular ejection fraction is within the normal range. There is normal LV segmental wall motion. Transmitral Doppler flow pattern is Grade I-abnormal relaxation pattern. There is mild to moderate aortic regurgitation. Mitral regurgitation is mild. There is moderate tricuspid regurgitation. There is moderate pulmonary hypertension.
--- NOTE | 2017-03-18 01:22 | CON ---
DATE: 03/17/2017 LOCATION: The patient is in room 362, bed 1. REASON FOR CONSULTATION AND FOLLOWUP: Dizziness. HISTORY OF PRESENT ILLNESS: The patient is an 82-year-old female who came to Emergency Room with a complaint of dizziness, which was intermittent since last 2 days. The patient denies any chest pain, shortness of breath, or palpitation associated with these episodes. No nausea. No vomiting. The patient denies any previous history of any medical disease. PAST MEDICAL HISTORY: In the past history, the patient states that he had some abdominal surgery, but does not remember what type. The patient is a poor historian. She was told to have high cholesterol because she was taking home simvastatin 40 mg daily. PERSONAL HISTORY: Denies smoking. Denies drinking. ALLERGIES: THE PATIENT DENIES ANY ALLERGIES. REVIEW OF SYSTEMS: All the system reviewed, positive mentioned in the history, otherwise negative. PHYSICAL EXAMINATION: VITAL SIGNS: Blood pressure 125/66, respirations 18, pulse 74, and temperature 98.2. HEENT: Head is normocephalic. Eyes: Pupils are normal. Conjunctivae are normal. Nose and throat are normal. NECK: JVP low. Carotids are equal. THORAX: AP diameter normal. LUNGS: Clear. CARDIOVASCULAR: S1 and S2. ABDOMEN: Soft. No tenderness. No organomegaly. Bowel sounds are normal. EXTREMITIES: No clubbing. No cyanosis. LABORATORY DATA: Shows WBC 5.0, hemoglobin 11.4, hematocrit 35.5, and platelets 170. Sodium 140, potassium 3.7, BUN 13, and creatinine 0.7. AST and ALT are normal. Total protein and albumin are normal. TSH 2.32. Troponin x3 negative. Echocardiogram was done , it showed normal size LV, normal LV ejection fraction and systolic function with LV ejection fraction of 56%. Transmitral Doppler flow pattern suggestive of grade 1 abnormal relaxation pattern, [id number] aortic regurgitation, mild mitral regurgitation, moderate tricuspid regurgitation, and moderate pulmonary hypertension with RVSP 53 mmHg. Chest x-ray, no active disease. EKG on 03/16/2017 showed sinus rhythm with premature atrial complexes. EKG on 03/15/2017 showed normal sinus rhythm. EKG on 03/11/2017 although was read as atrial fibrillation, but it looks like it is multifocal atrial tachycardia, rate around 115 per minute. DIAGNOSES: Dizziness cause unknown and hypercholesterolemia. Echo showed normal left ventricular systolic function, moderate pulmonary hypertension with right ventricular systolic pressure of 53 mmHg, [id number] aortic regurgitation, mild mitral regurgitation, and moderate tricuspid regurgitation. PLAN: We will put Lopressor 25 b.i.d. and Ecotrin 81 mg daily to the therapy and the patient can follow in the clinic as outpatient. If further workup to be needed can be done through the clinic as outpatient. Carmen Guajardo MD
== END 2017-03-17 14:40 | disposition home or self-care (01) ==
LOC: ED 16:30 → ERH 03-16 00:14 → 3RNO 03-16 17:14
PROVIDERS: ADMIT Internal Medicine; ATTEND Internal Medicine
DX: R55 Syncope and collapse (principal); H83.09 Labyrinthitis, unspecified ear; I65.21 Occlusion and stenosis of right carotid artery; I48.0 Paroxysmal atrial fibrillation; E78.00 Pure hypercholesterolemia, unspecified; I27.20 Pulmonary hypertension, unspecified; I08.3 Combined rheumatic disorders of mitral, aortic and tricuspid valves
CPT/HCPCS: 36415; 70450; 70496; 70498; 70551; 71045; 80053; 82550; 83036; 83615; 83735; 84439; 84443; 84484; 85025; 93005; 93306; 97116; 97161; 99285; G0378; G8978; G8979; G8980; J7040; Q9967